=== PATIENT | female | born 1940 | race Caucasian/White ===

== ENCOUNTER 2019-05-23 09:06 | Inpatient (IN) | payer MEDICARE, OTHER, SELFPAY ==
[~2019-05-23] VITALS: Ht 147.3 cm; Wt 35.8 kg
--- NOTE | 2019-05-23 09:29 | NUR ---
pt simona Gabriel [phone]
[2019-05-23] MEDS ORDERED: SODIUM CHLORIDE FLUSH 10ML SYR IVF ONE (09:30)
--- NOTE | 2019-05-23 09:31 | NUR ---
LATE NOTE ENTRY DUE TO PT CARE: Pt presents to ED by EMS from home with c/o right sided headache. Per EMS, pt "may have fallen out of bed, but no active bleeding or acute trauma observed." Pt has history of HTN and pt is HTN at 228/91 upon arrival to ED with HR at 70. Pt is wearing 2L oxygen via NC and is 100 SPO2%. Pt wears 2L oxygen via NC at baseline. No reported blood thinners in pt's home meds per EMS. EMS reports pt is AOX4 and GCS 15. Pt presents to ED lethargic but arousable to voice and non-painful stimuli. Pt is verbally responding to staff with grunting noises. Pt's pupils reactive to light at 2mm. Pt reported to be "wheel chair bound" at home. Pt connected to campus monitor, NIBP cuff, and pulse ox. network operations technician at bedside and lab at bedside. ED staff forester at bedside attempting to place PIV.
--- NOTE | 2019-05-23 09:33 | NUR ---
EKG DONE BY THIS TECH
--- NOTE | 2019-05-23 09:44 | NUR ---
Pt to CT on dereck at this time. ED medical staff services manager unable to obtain PIV at this time.
[2019-05-23] MEDS ORDERED: LABETALOL 5MG/ML, 20ML ONE (09:49)
[2019-05-23] MEDS ORDERED: LABETALOL 5MG/ML, 20ML IVPush ONE (10:00)
[2019-05-23 10:27] LABS: BASOPHILS # (AUTO) 0.01 x10^3/uL (0-0.1); BASOPHILS % (AUTO) 0 % (0-1); EOSINOPHILS # (AUTO) 0.16 x10^3/uL (0-0.4); EOSINOPHILS % (AUTO) 2 % (1-7); LYMPHOCYTES # (AUTO) 0.77 x10^3/uL (1-3.4); LYMPHOCYTES % (AUTO) 9 % (22-44); MD NO; MEAN CORPUSCULAR HEMOGLOBIN 29.9 pg (27.0-34.8); MEAN CORPUSCULAR HGB CONC 32.7 g/dL (32.4-35.8); MEAN CORPUSCULAR VOLUME 91.5 fL (80-100); MEAN PLATELET VOLUME 7.4 fL (7.4-10.4); MONOCYTES # (AUTO) 0.34 x10^3/uL (0.2-0.8); MONOCYTES % (AUTO) 4 % (2-9); NEUTROPHILS # (AUTO) 6.97 x10^3/uL (1.8-6.8); NEUTROPHILS % (AUTO) 85 % (42-75); PLATELET COUNT 223 x10^3/uL (130-400); RED CELL DISTRIBUTION WIDTH 15.1 % (9.6-15.2)
[2019-05-23 10:35] LABS: ALBUMIN 4.3 g/dL (3.4-5.0); CALCIUM 10.9 mg/dL (8.5-10.1); CHLORIDE 98 mmol/L (98-107); CREATININE 0.57 mg/dL (0.55-1.02)
[2019-05-23 10:39] LABS: TROPONIN I < 0.015 ng/mL (0.000-0.045)
[2019-05-23 10:41] LABS: ANION GAP 3 mmol/L (5-15)
--- NOTE | 2019-05-23 10:51 | NUR ---
Pt resting on gurney with waffle mattress underneath. Pt has yellow fall gown, yellow treaded socks, and fall risk braclet on. Bedrails up x 2 for safety precautions and pt is in room near nurses station. Gurney in lowest position. PIV in place and medication provided per EMAR. Pt alert to voice and verbally communication with ED RN. PT is AO to self and year and follows commands.
[2019-05-23 10:53] LABS: MICROSCOPIC AUTO
--- NOTE | 2019-05-23 10:53 | NUR ---
Call light within reach.
[2019-05-23 11:14] LABS: CULTURE INDICATED? NO
--- NOTE | 2019-05-23 11:22 | NUR ---
Spoke with pt's , pt aware of current plan of care, awaiting all results. Pt remains on monitors, bp decreased after medication administration. Pt on waffle mattress. Pt able to answer some questions appropriately, able to follow most commands at this time. Call light in reach. Cont to monitor.
[2019-05-23] MEDS ORDERED: hydrALAzine 20 MG/ML, 1ML IVPush PRN (12:00)
[2019-05-23] MEDS ORDERED: ONDANSETRON 2MG/ML, 2ML IVPush PRN (12:00)
[2019-05-23] MEDS ORDERED: POTASSIUM CHLORIDE 40 MEQ in SODIUM CHLORIDE 0.9% 500 ML IV ONE (12:00)
[2019-05-23] MEDS ORDERED: LABETALOL 5MG/ML, 20ML IVPush PRN (12:00)
--- NOTE | 2019-05-23 12:15 | NUR ---
Lab at bedside for lab draw. Pt to be admit. Pt remains on monitors, able to follow commands and answers some questions appropriately. Cont to monitor.
[2019-05-23] MEDS ORDERED: FAMO10TA77 PO (12:24)
[2019-05-23] MEDS ORDERED: ATEN5POW PO (12:24)
--- NOTE | 2019-05-23 12:38 | NUR ---
Report called to Sheng BROWN, pt transfering to rm [id number]. Receiving RN aware pt is getting blood cultures drawn currently, and pt has scheduled abx to give. Floor RN states he will give iv abx when pt arrives to floor. Pt has all own belonging upon transfer.
[2019-05-23 12:51] LABS: INTERNATIONAL NORMALIZED RATIO 1.01 (0.93-1.1); PROTHROMBIN TIME 10.7 Seconds (9.6-11.5)
[2019-05-23 12:53] LABS: HCT (SEDRATE) 38.9 % (34.6-47.8)
[2019-05-23 13:04] LABS: FREE T4 (FREE THYROXINE) 1.29 ng/dL (0.76-1.46)
[2019-05-23 13:11] VITALS: BP 183/84
[2019-05-23] MEDS: HEPARIN 5,000 UNITS/ML, 1ML SQ SCH ×2 (15:24→19:53)
[2019-05-23] MEDS: ATENOLOL 25 MG TABLET PO SCH (15:24)
[2019-05-23] MEDS: LOSARTAN 50MG TABLET PO SCH ×2 (16:00→17:02)
[2019-05-23] MEDS: AMLODIPINE 10 MG TAB PO SCH ×2 (16:00→17:02)
[2019-05-23 17:03] VITALS: BP 149/74
[2019-05-23 19:20] VITALS: BP 159/75
[2019-05-23] MEDS: CEFTRIAXONE PMX 1GM/50ML 50 ML IV SCH (19:52)
[2019-05-23] MEDS: ACETAMINOPHEN 325 MG TABLET PO PRN (20:00)
[2019-05-24 00:18] VITALS: BP 152/73
[2019-05-24] MEDS: ATENOLOL 25 MG TABLET PO SCH (05:16)
[2019-05-24] MEDS: HEPARIN 5,000 UNITS/ML, 1ML SQ SCH ×3 (05:16→20:43)
[2019-05-24 05:59] LABS: ANION GAP 5 mmol/L (5-15); CALCIUM 10.3 mg/dL (8.5-10.1); CHLORIDE 103 mmol/L (98-107)
[2019-05-24 06:00] LABS: CREATININE 0.35 mg/dL (0.55-1.02)
[2019-05-24] MEDS ORDERED: ATENOLOL 25 MG TABLET PO SCH (06:00)
[2019-05-24 08:56] VITALS: BP 212/61
[2019-05-24] MEDS: SENNA/DOCUSATE TABLET PO SCH (09:02)
[2019-05-24] MEDS: AMLODIPINE 10 MG TAB PO SCH (09:02)
[2019-05-24] MEDS: LOSARTAN 50MG TABLET PO SCH (09:02)
[2019-05-24] MEDS: PAROXETINE 10 MG TABLET PO SCH (09:02)
[2019-05-24 09:35] VITALS: BP 183/73
[2019-05-24 09:35] LABS: BASOPHILS # (AUTO) 0.05 x10^3/uL (0-0.1); BASOPHILS % (AUTO) 1 % (0-1); EOSINOPHILS % (AUTO) 4 % (1-7); LYMPHOCYTES # (AUTO) 1.74 x10^3/uL (1-3.4); LYMPHOCYTES % (AUTO) 22 % (22-44); MD SCAN; MEAN CORPUSCULAR HEMOGLOBIN 29.7 pg (27.0-34.8); MEAN CORPUSCULAR HGB CONC 32.1 g/dL (32.4-35.8); MEAN CORPUSCULAR VOLUME 92.4 fL (80-100); MEAN PLATELET VOLUME 8.1 fL (7.4-10.4); MONOCYTES # (AUTO) 0.66 x10^3/uL (0.2-0.8); MONOCYTES % (AUTO) 8 % (2-9); NEUTROPHILS % (AUTO) 65 % (42-75); PLATELET COUNT 196 x10^3/uL (130-400); RED BLOOD COUNT 4.46 x10^6/uL (3.82-5.3); RED CELL DISTRIBUTION WIDTH 15.1 % (9.6-15.2)
[2019-05-24 10:22] VITALS: BP 151/70
[2019-05-24] MEDS: ACETAMINOPHEN 325 MG TABLET PO PRN (12:07)
[2019-05-24 13:00] VITALS: BP 148/65
--- NOTE | 2019-05-24 13:08 | NUR ---
Patient would benefit from ongoing skilled BRICKLAYER APPRENTICE serivces in SNF Addendum: 05/24/19 at 1308 by ALEX ORTEGA Amended: Links added.
[2019-05-24 19:01] VITALS: BP 144/68
[2019-05-24] MEDS: CEFTRIAXONE PMX 1GM/50ML 50 ML IV SCH (19:28)
[2019-05-25 00:26] VITALS: BP 157/77
[2019-05-25] MEDS: ATENOLOL 25 MG TABLET PO SCH (05:17)
[2019-05-25] MEDS: HEPARIN 5,000 UNITS/ML, 1ML SQ SCH ×2 (05:17→13:14)
[2019-05-25 07:06] VITALS: BP 162/71
[2019-05-25] MEDS: PAROXETINE 10 MG TABLET PO SCH (08:54)
[2019-05-25] MEDS: AMLODIPINE 10 MG TAB PO SCH (08:54)
[2019-05-25] MEDS: SENNA/DOCUSATE TABLET PO SCH (08:54)
[2019-05-25] MEDS ORDERED: LOSARTAN 100 MG TAB PO SCH (09:00)
[2019-05-25] MEDS ORDERED: ACET325T26 PO (11:52)
[2019-05-25] MEDS ORDERED: AMLO10TA8 PO (11:52)
[2019-05-25] MEDS ORDERED: PARO10TA3 PO (11:52)
[2019-05-25] MEDS ORDERED: HEPA50002 SQ (11:52)
[2019-05-25] MEDS ORDERED: LOSA100T2 PO (11:52)
[2019-05-25] MEDS ORDERED: HYDR-3341 PO (11:52)
[2019-05-25] MEDS ORDERED: ATEN25TA PO (11:52)
[2019-05-25] MEDS ORDERED: SENN-193 PO (11:52)
[2019-05-25 13:22] VITALS: BP 160/83
== END 2019-05-25 14:18 | DRG 305 ==
LOC: ED 11:06 → SUATTDRO 11:41 → EDIP 11:58 → 4WST 12:47
PROVIDERS: ADMIT Hospitalist; ATTEND Hospitalist
DX: I16.0 Hypertensive urgency (principal); E87.4 Mixed disorder of acid-base balance; I50.30 Unspecified diastolic (congestive) heart failure; Q21.1 Atrial septal defect; R64 Cachexia; Z68.1 Body mass index [BMI] 19.9 or less, adult; G93.40 Encephalopathy, unspecified; E83.52 Hypercalcemia; D35.1 Benign neoplasm of parathyroid gland; E86.0 Dehydration; E87.6 Hypokalemia; G31.84 Mild cognitive impairment of uncertain or unknown etiology; J44.9 Chronic obstructive pulmonary disease, unspecified; K21.9 Gastro-esophageal reflux disease without esophagitis; M41.9 Scoliosis, unspecified; M81.0 Age-related osteoporosis without current pathological fracture; R62.7 Adult failure to thrive; I11.0 Hypertensive heart disease with heart failure; Z80.9 Family history of malignant neoplasm, unspecified; Z82.49 Family history of ischemic heart disease and other diseases of the circulatory system; Z87.891 Personal history of nicotine dependence; Z85.3 Personal history of malignant neoplasm of breast; Z99.3 Dependence on wheelchair; R53.81 Other malaise
CPT/HCPCS: 36415; 36600; 70450; 70551; 71045; 72125; 76536; 80048; 81001; 82040; 82140; 82330; 82436; 82803; 83735; 83970; 84100; 84132; 84439; 84443; 84484; 85025; 85610; 85651; 87040; 93005; 93306; 95819; 96365; G0378; J0696; J1644; J3480; 92523-GN; J7040

== ENCOUNTER 2019-08-30 16:11 | Inpatient (IN) | payer MEDICARE, MEDICAID ==
[~2019-08-30] VITALS: Ht 152.4 cm; Wt 35.8 kg
[~2019-08-30 16:11] MED LIST: ACET325T26 PO; AMLO10TA8 PO; ATEN25TA PO; ATEN5POW PO; FAMO10TA77 PO; HEPA50002 SQ; HYDR-3341 PO; LOSA100T2 PO; PARO10TA3 PO; SENN-193 PO
--- NOTE | 2019-08-30 16:40 | NUR ---
PT BIB EMS FOR ALTERED MENTAL STATUS. PT RECENT DC FROM SNF FOR RIGHT HIP REPLACEMENT. PER PT HAD BEEN WEAK AND ALTERED. PT DENIES CP, SOB, OR COUGH. RESPONDS TO STIMULIT. PT HAD ON 2 BREIFS SOAKED. SKIN INTACT. CARDAIC MONITOR IN PLACE . VSS.
--- NOTE | 2019-08-30 16:46 | NUR ---
PT CALLED FOR INFO.
[2019-08-30] MEDS ORDERED: SODIUM CHLORIDE 0.9% 1,000ML IVBOLUS ONE (17:00)
[2019-08-30 17:10] LABS: MICROSCOPIC AUTO
--- NOTE | 2019-08-30 17:20 | NUR ---
PATIENTS SPOUSE, CORI CALLED FOR UPDATES, INFORMED HIM PATIENT IS RESTING COMFORTABLY IN BED AND WE ARE AWAITING LAB RESULTS. HE WOULD LIKE CALL WITH ANY UPDATES AT [phone]. pER SPOUSE PATIENT HAS DEMENTIA.
[2019-08-30 17:28] LABS: BASOPHILS # (AUTO) 0.02 x10^3/uL (0-0.1); BASOPHILS % (AUTO) 0 % (0-1); EOSINOPHILS # (AUTO) 0.16 x10^3/uL (0-0.4); EOSINOPHILS % (AUTO) 2 % (1-7); LYMPHOCYTES # (AUTO) 1.11 x10^3/uL (1-3.4); LYMPHOCYTES % (AUTO) 12 % (22-44); MD NO; MEAN CORPUSCULAR HEMOGLOBIN 27.7 pg (27.0-34.8); MEAN CORPUSCULAR HGB CONC 31.8 g/dL (32.4-35.8); MEAN PLATELET VOLUME 7.4 fL (7.4-10.4); MONOCYTES # (AUTO) 0.45 x10^3/uL (0.2-0.8); MONOCYTES % (AUTO) 5 % (2-9); NEUTROPHILS # (AUTO) 7.38 x10^3/uL (1.8-6.8); NEUTROPHILS % (AUTO) 81 % (42-75); PLATELET COUNT 241 x10^3/uL (130-400); RED BLOOD COUNT 4.51 x10^6/uL (3.82-5.3); RED CELL DISTRIBUTION WIDTH 15.6 % (9.6-15.2)
[2019-08-30 17:35] LABS: ALANINE AMINOTRANSFERASE 10 U/L (12-78); ALBUMIN 3.7 g/dL (3.4-5.0); ANION GAP 3 mmol/L (5-15); CHLORIDE 104 mmol/L (98-107); CREATININE 0.44 mg/dL (0.55-1.02)
[2019-08-30 17:39] LABS: ALKALINE PHOSPHATASE 156 U/L (45-117); BILIRUBIN,TOTAL 0.4 mg/dL (0.2-1.0); TOTAL PROTEIN 7.6 g/dL (6.4-8.2); TROPONIN I < 0.015 ng/mL (0.000-0.045)
[2019-08-30 17:40] LABS: SALICYLATE LEVEL < 1.7 mg/dL (2.8-20.0)
[2019-08-30 17:46] LABS: AMPHETAMINE SCREEN, URINE Negative (Negative); BARBITURATE SCREEN, URINE Negative (Negative); BENZODIAZEPINE SCREEN, URINE Negative (Negative); CANNABINOID SCREEN, URINE Positive (Negative); COCAINE SCREEN, URINE Negative (Negative); METHADONE SCREEN, URINE Negative (Negative); OPIATE SCREEN, URINE Negative (Negative)
[2019-08-30] MEDS ORDERED: POTASSIUM CHLORIDE 40 MEQ in SODIUM CHLORIDE 0.9% 500 ML IV ONE (18:00)
--- NOTE | 2019-08-30 18:00 | NUR ---
FLUIDS REQUESTED FROM PHARMACY.
[2019-08-30] MEDS ORDERED: BISACODYL 10 MG SUPP PR PRN (18:30)
[2019-08-30] MEDS ORDERED: ENOXAPARIN 40 MG/0.4 ML SQ SCH (18:30)
[2019-08-30] MEDS ORDERED: POLYETHYLENE GLYCOL 17 GM PACKET PO PRN (18:30)
[2019-08-30] MEDS ORDERED: morphine SULFATE 10 MG/ML, 1ML IVPush PRN (18:30)
[2019-08-30] MEDS ORDERED: ONDANSETRON 2MG/ML, 2ML IVPush PRN (18:30)
[2019-08-30] MEDS ORDERED: ACETAMINOPHEN 325 MG TABLET PO PRN (18:30)
--- NOTE | 2019-08-30 18:32 | NUR ---
IV POTASSIUM STARTED.
[2019-08-30] MEDS ORDERED: POTASSIUM CHLORIDE 40 MEQ in LACTATED RINGERS 1,000 ML IV SCH (19:00)
[2019-08-30] MEDS ORDERED: hydrALAzine 20 MG/ML, 1ML IV PRN (19:00)
--- NOTE | 2019-08-30 19:12 | NUR ---
report received from miah mcneil
[2019-08-30] MEDS ORDERED: ENOXAPARIN 40 MG/0.4 ML ONE (19:16)
[2019-08-30] MEDS ORDERED: hydrALAzine 20 MG/ML, 1ML ONE (19:16)
[2019-08-30] MEDS ORDERED: OMNIPAQUE 350 MG/ML, 100ML BOTTLE ONE (19:40)
--- NOTE | 2019-08-30 20:44 | NUR ---
report given to jason mcneil to assume care upon transfer to [facility]. Was informed room is not clean yet and will recieve call back once room is ready
[2019-08-30] MEDS ORDERED: FAMOTIDINE 20 MG TABLET PO ONE (21:00)
--- NOTE | 2019-08-30 21:38 | NUR ---
Received call from Diann BROWN that room is clean and ready for pt now
[2019-08-30 22:49] VITALS: BP 144/73
[2019-08-31] MEDS ORDERED: POTASSIUM CHLORIDE 20 MEQ TAB.ER.PRT PO ONE
[2019-08-31 01:30] VITALS: BP 127/70
[2019-08-31 04:59] LABS: BASOPHILS # (AUTO) 0.03 x10^3/uL (0-0.1); BASOPHILS % (AUTO) 0 % (0-1); EOSINOPHILS % (AUTO) 2 % (1-7); LYMPHOCYTES # (AUTO) 1.47 x10^3/uL (1-3.4); LYMPHOCYTES % (AUTO) 17 % (22-44); MD NO; MEAN CORPUSCULAR HEMOGLOBIN 27.9 pg (27.0-34.8); MEAN CORPUSCULAR HGB CONC 31.9 g/dL (32.4-35.8); MEAN PLATELET VOLUME 7.6 fL (7.4-10.4); MONOCYTES # (AUTO) 0.71 x10^3/uL (0.2-0.8); MONOCYTES % (AUTO) 8 % (2-9); NEUTROPHILS # (AUTO) 6.24 x10^3/uL (1.8-6.8); NEUTROPHILS % (AUTO) 72 % (42-75); PLATELET COUNT 220 x10^3/uL (130-400); RED BLOOD COUNT 3.79 x10^6/uL (3.82-5.3); RED CELL DISTRIBUTION WIDTH 15.3 % (9.6-15.2)
[2019-08-31 05:05] LABS: ANION GAP 6 mmol/L (5-15); CALCIUM 9.5 mg/dL (8.5-10.1); CHLORIDE 109 mmol/L (98-107); CREATININE 0.25 mg/dL (0.55-1.02)
[2019-08-31 05:27] VITALS: BP 127/70
[2019-08-31] MEDS: ATENOLOL 25 MG TABLET PO SCH (05:30)
[2019-08-31] MEDS: SENNA/DOCUSATE TABLET PO SCH ×3 (07:54→09:31)
[2019-08-31] MEDS ORDERED: GADOTERATE 5 MMOL/10 ML VIAL ONE (08:46)
[2019-08-31] MEDS: AMLODIPINE 10 MG TAB PO SCH (09:29)
[2019-08-31] MEDS: PAROXETINE 20 MG TABLET PO SCH (09:29)
[2019-08-31 09:32] VITALS: BP 151/69
[2019-08-31 14:35] VITALS: BP 147/72
[2019-08-31 18:51] VITALS: BP 152/73
[2019-09-01 01:18] VITALS: BP 153/83
[2019-09-01 05:29] VITALS: BP 149/75
[2019-09-01] MEDS: ATENOLOL 25 MG TABLET PO SCH (05:30)
[2019-09-01 05:54] LABS: ALBUMIN 3.1 g/dL (3.4-5.0); ANION GAP 5 mmol/L (5-15); CALCIUM 10.3 mg/dL (8.5-10.1); CHLORIDE 107 mmol/L (98-107)
[2019-09-01 05:59] LABS: ALANINE AMINOTRANSFERASE 9 U/L (12-78); ALKALINE PHOSPHATASE 121 U/L (45-117); BILIRUBIN,TOTAL 0.5 mg/dL (0.2-1.0); CREATININE 0.28 mg/dL (0.55-1.02); TOTAL PROTEIN 6.4 g/dL (6.4-8.2)
[2019-09-01 07:16] VITALS: BP 165/73
[2019-09-01] MEDS ORDERED: POTASSIUM CHLORIDE 20 MEQ TAB.ER.PRT PO SCH (08:00)
[2019-09-01] MEDS ORDERED: LOSARTAN 100 MG TAB PO SCH (09:00)
[2019-09-01] MEDS: AMLODIPINE 10 MG TAB PO SCH (09:11)
[2019-09-01] MEDS: PAROXETINE 20 MG TABLET PO SCH (09:11)
[2019-09-01] MEDS: SENNA/DOCUSATE TABLET PO SCH (09:13)
[2019-09-01 12:56] VITALS: BP 166/75
[2019-09-01] MEDS ORDERED: POTA20TA6 PO (13:35)
[2019-09-01] MEDS ORDERED: ENOXAPARIN 30 MG/0.3 ML SQ SCH (19:30)
== END 2019-09-01 15:40 | disposition home health service (06) | DRG 917 ==
LOC: ED 17:58 → EDIP 19:14 → 4EST 22:28
PROVIDERS: ADMIT Hospitalist; ATTEND Hospitalist
PROC: 0T9B70Z Drainage of Bladder with Drainage Device, Via Natural or Artificial Opening (ICD-10-PCS; principal; 2019-08-30)
DX: T40.7X1A Poisoning by cannabis (derivatives), accidental (unintentional), initial encounter (principal); G92 Toxic encephalopathy; J98.11 Atelectasis; J96.10 Chronic respiratory failure, unspecified whether with hypoxia or hypercapnia; Z68.1 Body mass index [BMI] 19.9 or less, adult; E87.6 Hypokalemia; F03.90 Unspecified dementia, unspecified severity, without behavioral disturbance, psychotic disturbance, mood disturbance, and anxiety; I10 Essential (primary) hypertension; I67.1 Cerebral aneurysm, nonruptured; I73.9 Peripheral vascular disease, unspecified; J44.9 Chronic obstructive pulmonary disease, unspecified; J84.10 Pulmonary fibrosis, unspecified; K21.9 Gastro-esophageal reflux disease without esophagitis; K44.9 Diaphragmatic hernia without obstruction or gangrene; M41.9 Scoliosis, unspecified; M81.0 Age-related osteoporosis without current pathological fracture; K86.89 Other specified diseases of pancreas; R62.7 Adult failure to thrive; R74.8 Abnormal levels of other serum enzymes; Z85.3 Personal history of malignant neoplasm of breast; Z87.891 Personal history of nicotine dependence; Z99.81 Dependence on supplemental oxygen; Z88.8 Allergy status to other drugs, medicaments and biological substances; Z79.01 Long term (current) use of anticoagulants
CPT/HCPCS: 36415; 70450; 70553; 71045; 74177; 80048; 80053; 80307; 81001; 82105; 82140; 82378; 83605; 83735; 84443; 84484; 85025; 86301; 87040; 93005; 99285; A9575; G0378; J1650; J3480; Q9967; J0360; J7030; J7040; J7120

== ENCOUNTER 2019-11-13 20:52 | Inpatient (IN) | payer MEDICARE, MEDICAID ==
[~2019-11-13] VITALS: Ht 152.4 cm; Wt 36.5 kg
[~2019-11-13 20:52] MED LIST changes: +POTA20TA6 PO
--- NOTE | 2019-11-13 21:06 | NUR ---
AWAKE, ALERT RESPONDS TO MOST QUESTIONS APPROPRIATLY, NO COMPLAINTS OF PAIN. IS PALE, VSS. USES HOME O2. LIVES WITH . ON MONITOR, CONT PULSE OX. 2ND IV BEING PLACED. CALL ROSARIO IN REACH, AIDET PROVIDED. WILL CONTINUE TO MONITOR.
--- NOTE | 2019-11-13 21:17 | NUR ---
ERP AT BEDSIDE, PT WITH PERIODS OF CONFUSION. KNOWS HER NAME, SOME OF HER HX AND WHERE SHE IS. 2ND IV PLACED, BLOODS DRAWN AND SENT. ON [employer]INTING. VSS.
--- NOTE | 2019-11-13 21:20 | NUR ---
PT STATES IT HAS BEEN VERY HARD FOR HER TO PHYSICALLY CARE FOR HER AT HOME ANYMORE.
[2019-11-13] MEDS ORDERED: SODIUM CHLORIDE FLUSH 10ML SYR IVF ONE (21:30)
[2019-11-13] MEDS ORDERED: ONDANSETRON 2MG/ML, 2ML IVPush ONE (22:00)
[2019-11-13] MEDS ORDERED: ONDANSETRON 2MG/ML, 2ML ONE (22:15)
[2019-11-13 22:21] LABS: ALANINE AMINOTRANSFERASE 32 U/L (12-78); ALBUMIN 3.2 g/dL (3.4-5.0); ANION GAP 8 mmol/L (5-15); CALCIUM 9.5 mg/dL (8.5-10.1); CHLORIDE 105 mmol/L (98-107)
[2019-11-13 22:23] LABS: ALKALINE PHOSPHATASE 545 U/L (45-117); BILIRUBIN,TOTAL 0.7 mg/dL (0.2-1.0); TOTAL PROTEIN 6.7 g/dL (6.4-8.2)
[2019-11-13 22:24] LABS: BASOPHILS % (AUTO) 0 % (0-1); EOSINOPHILS % (AUTO) 0 % (1-7); LYMPHOCYTES % (AUTO) 10 % (22-44); MEAN CORPUSCULAR HEMOGLOBIN 30.3 pg (27.0-34.8); MEAN CORPUSCULAR HGB CONC 32.5 g/dL (32.4-35.8); MEAN PLATELET VOLUME 7.9 fL (7.4-10.4); MONOCYTES % (AUTO) 5 % (2-9); NEUTROPHILS % (AUTO) 84 % (42-75); PLATELET COUNT 254 x10^3/uL (130-400); RED BLOOD COUNT 1.59 x10^6/uL (3.82-5.3); RED CELL DISTRIBUTION WIDTH 18.4 % (9.6-15.2)
--- NOTE | 2019-11-13 22:25 | NUR ---
CALLED, INFORMED HIM SHE WILL BE STAYING IN HOSPITAL.
[2019-11-13] MEDS ORDERED: PANTOPRAZOLE 80 MG in SODIUM CHLORIDE 0.9% 50 ML IV ONE (22:30)
--- NOTE | 2019-11-13 22:51 | NUR ---
PER MEDIC REPORT LIST OF MEDS UPDATED, PT THINKS SHE TOOK THEM TODAY BUT NOT SURE. PRBC, PROTONIX REQUESTED. VSS. WILL CONTINUE TO MONITOR. PT SLEEPING, WAKES UP WITH VERBAL/TOUCH, NO PAIN, NO N/V. AIDET PROVIDED.
[2019-11-13 22:57] LABS: MD MORPH REVIEW ONLY
[2019-11-13 22:58] LABS: ANISOCYTOSIS 1+
[2019-11-13 22:59] LABS: HYPOCHROMIA 1+; POLYCHROMASIA 1+
--- NOTE | 2019-11-13 22:59 | NUR ---
maritza rn: called with primary rn denisha to get consent for blood transfusion.
[2019-11-13 23:00] LABS: <PLATELET ESTIMATE> ADEQUATE; <PLT MORPHOLOGY> NORMAL PLT MORPH
[2019-11-13 23:07] VITALS: BP 119/45
--- NOTE | 2019-11-13 23:16 | NUR ---
PRBC STARTED PER POLICY. CONSENT OBTAINED FROM CORI PT WITH 2 RN CONSENT. VSS. WAITING FOR ADMIT/BED
[2019-11-13 23:22] VITALS: BP 145/54
--- NOTE | 2019-11-13 23:27 | NUR ---
TRANSFUSION VSS AT 15MIN. WILL CONTINUE TO MONITOR.
[2019-11-13] MEDS ORDERED: NS + 40MEQ KCL 1,000 ML IV SCH (23:30)
[2019-11-13] MEDS ORDERED: BISACODYL 10 MG SUPP PR PRN (23:30)
--- NOTE | 2019-11-13 23:32 | NUR ---
Juni cohen in ED - 11/13/19 at 2332 by [email or web address] REPORT TO MARITZA INIGUEZ PT PREPARED FOR TRANSPORT.
--- NOTE | 2019-11-13 23:33 | NUR ---
REPORT TO MARITZA HERNANDEZ RN. PT PREPARED FOR TRANSPORT. NO S/S BLOOD TX RXN. VSS.
[2019-11-13 23:55] VITALS: BP 120/76
[2019-11-14] VITALS (13 sets, daily range): BP systolic 101–148; BP diastolic 63–74
[2019-11-14] MEDS: PANTOPRAZOLE 80 MG in SODIUM CHLORIDE 0.9% 100 ML IV SCH ×2 (00:46→10:33)
[2019-11-14 05:30] LABS: ANION GAP 7 mmol/L (5-15); CALCIUM 9.2 mg/dL (8.5-10.1); CHLORIDE 112 mmol/L (98-107)
[2019-11-14 05:31] LABS: CREATININE 0.29 mg/dL (0.55-1.02)
[2019-11-14 05:32] LABS: BASOPHILS % (AUTO) 0 % (0-1); EOSINOPHILS % (AUTO) 0 % (1-7); LYMPHOCYTES % (AUTO) 10 % (22-44); MEAN CORPUSCULAR HEMOGLOBIN 30.6 pg (27.0-34.8); MEAN CORPUSCULAR HGB CONC 33.6 g/dL (32.4-35.8); MEAN PLATELET VOLUME 7.8 fL (7.4-10.4); MONOCYTES % (AUTO) 9 % (2-9); NEUTROPHILS % (AUTO) 80 % (42-75); PLATELET COUNT 161 x10^3/uL (130-400); RED BLOOD COUNT 2.94 x10^6/uL (3.82-5.3)
[2019-11-14] MEDS ORDERED: ATENOLOL 25 MG TABLET PO SCH (06:00)
[2019-11-14 06:02] LABS: MD NO
[2019-11-14] MEDS ORDERED: POTASSIUM CHLORIDE 20 MEQ TAB.ER.PRT PO SCH (09:00)
[2019-11-14] MEDS ORDERED: PAROXETINE 10 MG TABLET PO SCH (09:00)
[2019-11-14] MEDS ORDERED: AMLODIPINE 10 MG TAB PO SCH (09:00)
[2019-11-14] MEDS ORDERED: SENNA/DOCUSATE TABLET PO SCH (09:00)
[2019-11-14] MEDS ORDERED: LOSARTAN 100 MG TAB PO SCH (09:00)
[2019-11-14] MEDS ORDERED: ATROPINE OPHTH SOLN 1%, 5ML PO PRN (16:30)
[2019-11-14] MEDS: SODIUM CHLORIDE FLUSH 10ML SYR IVF SCH (20:51)
[2019-11-15] MEDS: MORPHINE SULFATE 4 MG/ML, 1ML IVPush PRN ×2 (04:24→09:38)
[2019-11-15] MEDS: SODIUM CHLORIDE FLUSH 10ML SYR IVF SCH ×2 (09:39→21:15)
[2019-11-15] MEDS: LORazepam 2 MG/ML, 1ML IVPush PRN (21:14)
[2019-11-16] MEDS: SODIUM CHLORIDE FLUSH 10ML SYR IVF SCH ×2 (08:28→21:37)
[2019-11-16] MEDS: MORPHINE SULFATE 4 MG/ML, 1ML IVPush PRN (18:11)
[2019-11-16] MEDS: LORazepam 2 MG/ML, 1ML IVPush PRN (21:36)
[2019-11-17] MEDS: SODIUM CHLORIDE FLUSH 10ML SYR IVF SCH ×2 (09:00→20:25)
[2019-11-17] MEDS: SCOPOLAMINE 1MG PATCH TD PRN (15:08)
[2019-11-17] MEDS: GUAIFENESIN/DM 200-20MG, 10ML UDC PO PRN (17:19)
[2019-11-17] MEDS: MORPHINE SULFATE 4 MG/ML, 1ML IVPush PRN (20:33)
[2019-11-18] MEDS: SODIUM CHLORIDE FLUSH 10ML SYR IVF SCH (09:50)
[2019-11-18] MEDS: GUAIFENESIN/DM 200-20MG, 10ML UDC PO PRN (09:50)
[2019-11-18] MEDS: TOBRAMYCIN/DEXAMETH OPHTH OINT 3GM RIGHTEYE SCH (16:00)
[2019-11-18] MEDS: ACETAMINOPHEN 325 MG TABLET PO PRN (16:57)
[2019-11-19] MEDS: SODIUM CHLORIDE FLUSH 10ML SYR IVF SCH ×3 (00:25→21:24)
[2019-11-19] MEDS: TOBRAMYCIN/DEXAMETH OPHTH OINT 3GM RIGHTEYE SCH ×4 (00:26→21:24)
[2019-11-19] MEDS: GUAIFENESIN/DM 200-20MG, 10ML UDC PO PRN ×2 (14:06→19:23)
[2019-11-19] MEDS: SENNA/DOCUSATE TABLET PO PRN (14:06)
[2019-11-20] MEDS: LORazepam 2 MG/ML, 1ML IVPush PRN (00:18)
[2019-11-20] MEDS: MORPHINE SULFATE 4 MG/ML, 1ML IVPush PRN ×2 (03:32→21:49)
[2019-11-20] MEDS: TOBRAMYCIN/DEXAMETH OPHTH OINT 3GM RIGHTEYE SCH ×3 (08:59→21:49)
[2019-11-20] MEDS: SODIUM CHLORIDE FLUSH 10ML SYR IVF SCH ×2 (09:00→21:49)
[2019-11-21] MEDS: TOBRAMYCIN/DEXAMETH OPHTH OINT 3GM RIGHTEYE SCH ×3 (07:53→22:48)
[2019-11-21] MEDS: MORPHINE SULFATE 4 MG/ML, 1ML IVPush PRN (07:54)
[2019-11-21] MEDS: SODIUM CHLORIDE FLUSH 10ML SYR IVF SCH ×2 (07:54→22:48)
[2019-11-21] MEDS: SENNA/DOCUSATE TABLET PO PRN (11:39)
[2019-11-21] MEDS: SENNA/DOCUSATE TABLET PO SCH ×2 (13:42→22:48)
[2019-11-21] MEDS: POLYETHYLENE GLYCOL 17 GM PACKET NG SCH (13:43)
[2019-11-22] MEDS: MORPHINE SULFATE 4 MG/ML, 1ML IVPush PRN ×2 (06:46→14:53)
[2019-11-22] MEDS: SODIUM CHLORIDE FLUSH 10ML SYR IVF SCH ×2 (07:36→20:35)
[2019-11-22] MEDS: SENNA/DOCUSATE TABLET PO SCH ×2 (07:37→20:34)
[2019-11-22] MEDS: POLYETHYLENE GLYCOL 17 GM PACKET NG SCH (07:37)
[2019-11-22] MEDS: TOBRAMYCIN/DEXAMETH OPHTH OINT 3GM RIGHTEYE SCH ×3 (07:37→20:34)
[2019-11-22] MEDS ORDERED: PINK LADY ENEMA 490 ML BOTTLE PR PRN (11:00)
[2019-11-22] MEDS: ONDANSETRON ODT 4 MG PO PRN (14:53)
[2019-11-23] MEDS: ACETAMINOPHEN 325 MG TABLET PO PRN (00:15)
[2019-11-23] MEDS: TOBRAMYCIN/DEXAMETH OPHTH OINT 3GM RIGHTEYE SCH ×3 (10:30→21:21)
[2019-11-23] MEDS: SENNA/DOCUSATE TABLET PO SCH ×2 (10:30→21:21)
[2019-11-23] MEDS: POLYETHYLENE GLYCOL 17 GM PACKET NG SCH (10:30)
[2019-11-23] MEDS: METHYLNALTREXONE 12 MG/0.6 ML SYR SQ SCH (10:30)
[2019-11-23] MEDS: SODIUM CHLORIDE FLUSH 10ML SYR IVF SCH ×2 (10:31→21:21)
[2019-11-23] MEDS: MORPHINE SULFATE 4 MG/ML, 1ML IVPush PRN ×2 (13:06→18:31)
[2019-11-23] MEDS: ONDANSETRON ODT 4 MG PO PRN (13:06)
[2019-11-23] MEDS: LORazepam 2 MG/ML, 1ML IVPush PRN (22:05)
[2019-11-24] MEDS: SODIUM CHLORIDE FLUSH 10ML SYR IVF SCH (09:00)
[2019-11-24] MEDS: TOBRAMYCIN/DEXAMETH OPHTH OINT 3GM RIGHTEYE SCH ×3 (09:00→20:34)
[2019-11-24] MEDS: POLYETHYLENE GLYCOL 17 GM PACKET NG SCH (09:00)
[2019-11-24] MEDS: SENNA/DOCUSATE TABLET PO SCH ×2 (09:00→20:35)
[2019-11-24] MEDS: MORPHINE SULFATE 4 MG/ML, 1ML IVPush PRN ×2 (18:16→20:34)
[2019-11-25] MEDS: LORazepam 2 MG/ML, 1ML IVPush PRN (00:02)
[2019-11-25] MEDS: METHYLNALTREXONE 12 MG/0.6 ML SYR SQ SCH (08:47)
[2019-11-25] MEDS: SENNA/DOCUSATE TABLET PO SCH ×2 (08:47→21:55)
[2019-11-25] MEDS: MORPHINE SULFATE 4 MG/ML, 1ML IVPush PRN ×3 (08:47→22:24)
[2019-11-25] MEDS: POLYETHYLENE GLYCOL 17 GM PACKET NG SCH (08:47)
[2019-11-25] MEDS: TOBRAMYCIN/DEXAMETH OPHTH OINT 3GM RIGHTEYE SCH ×3 (08:47→21:55)
[2019-11-26] MEDS: LORazepam 2 MG/ML, 1ML IVPush PRN ×2 (05:34→21:39)
[2019-11-26] MEDS: SENNA/DOCUSATE TABLET PO SCH ×2 (09:57→20:27)
[2019-11-26] MEDS: TOBRAMYCIN/DEXAMETH OPHTH OINT 3GM RIGHTEYE SCH ×3 (09:57→21:39)
[2019-11-26] MEDS: POLYETHYLENE GLYCOL 17 GM PACKET NG SCH (09:57)
[2019-11-26] MEDS: MORPHINE SULFATE 4 MG/ML, 1ML IVPush PRN (19:33)
[2019-11-26] MEDS: GUAIFENESIN/DM 200-20MG, 10ML UDC PO PRN (23:00)
[2019-11-27] MEDS: GUAIFENESIN/DM 200-20MG, 10ML UDC PO PRN (06:57)
[2019-11-27] MEDS: TOBRAMYCIN/DEXAMETH OPHTH OINT 3GM RIGHTEYE SCH ×3 (12:12→20:22)
[2019-11-27] MEDS: SENNA/DOCUSATE TABLET PO SCH ×2 (12:12→20:22)
[2019-11-27] MEDS: METHYLNALTREXONE 12 MG/0.6 ML SYR SQ SCH (12:12)
[2019-11-27] MEDS: POLYETHYLENE GLYCOL 17 GM PACKET NG SCH (12:12)
[2019-11-27] MEDS: MORPHINE SULFATE 4 MG/ML, 1ML IVPush PRN ×3 (13:27→20:22)
[2019-11-28] MEDS: LORazepam 2 MG/ML, 1ML IVPush PRN (02:40)
[2019-11-28] MEDS: SENNA/DOCUSATE TABLET PO SCH ×2 (08:51→21:00)
[2019-11-28] MEDS: POLYETHYLENE GLYCOL 17 GM PACKET NG SCH (08:51)
[2019-11-28] MEDS: TOBRAMYCIN/DEXAMETH OPHTH OINT 3GM RIGHTEYE SCH ×3 (08:52→21:23)
[2019-11-28] MEDS: MORPHINE SULFATE 4 MG/ML, 1ML IVPush PRN ×2 (08:52→14:01)
[2019-11-28] MEDS: ONDANSETRON ODT 4 MG PO PRN (14:16)
[2019-11-29] MEDS: LORazepam 2 MG/ML, 1ML IVPush PRN (02:53)
[2019-11-29] MEDS: MORPHINE SULFATE 4 MG/ML, 1ML IVPush PRN ×3 (06:34→23:07)
[2019-11-29] MEDS: SENNA/DOCUSATE TABLET PO SCH ×2 (08:10→21:52)
[2019-11-29] MEDS: METHYLNALTREXONE 12 MG/0.6 ML SYR SQ SCH (08:10)
[2019-11-29] MEDS: POLYETHYLENE GLYCOL 17 GM PACKET NG SCH (08:10)
[2019-11-29] MEDS: TOBRAMYCIN/DEXAMETH OPHTH OINT 3GM RIGHTEYE SCH ×3 (09:55→21:52)
[2019-11-29] MEDS: ONDANSETRON 2MG/ML, 2ML IVPush PRN (15:13)
[2019-11-29] MEDS: GUAIFENESIN/DM 200-20MG, 10ML UDC PO PRN (22:18)
[2019-11-30] MEDS: MORPHINE SULFATE 4 MG/ML, 1ML IVPush PRN ×2 (04:36→09:00)
[2019-11-30] MEDS: SCOPOLAMINE 1MG PATCH TD PRN (09:00)
[2019-11-30] MEDS: POLYETHYLENE GLYCOL 17 GM PACKET NG SCH (09:00)
[2019-11-30] MEDS: SENNA/DOCUSATE TABLET PO SCH ×2 (09:00→21:48)
[2019-11-30] MEDS: TOBRAMYCIN/DEXAMETH OPHTH OINT 3GM RIGHTEYE SCH ×3 (09:08→21:48)
[2019-11-30] MEDS: LORazepam 2 MG/ML, 1ML IVPush PRN (09:08)
[2019-12-01] MEDS: MORPHINE SULFATE 4 MG/ML, 1ML IVPush PRN ×3 (02:45→18:03)
[2019-12-01] MEDS: ONDANSETRON 2MG/ML, 2ML IVPush PRN (02:45)
[2019-12-01] MEDS: POLYETHYLENE GLYCOL 17 GM PACKET NG SCH (08:24)
[2019-12-01] MEDS: METHYLNALTREXONE 12 MG/0.6 ML SYR SQ SCH (08:24)
[2019-12-01] MEDS: TOBRAMYCIN/DEXAMETH OPHTH OINT 3GM RIGHTEYE SCH ×3 (08:25→23:00)
[2019-12-01] MEDS: SENNA/DOCUSATE TABLET PO SCH ×2 (08:25→23:00)
[2019-12-02] MEDS: MORPHINE SULFATE 4 MG/ML, 1ML IVPush PRN ×2 (04:56→19:31)
[2019-12-02] MEDS: POLYETHYLENE GLYCOL 17 GM PACKET NG SCH (09:00)
[2019-12-02] MEDS: TOBRAMYCIN/DEXAMETH OPHTH OINT 3GM RIGHTEYE SCH ×3 (09:00→19:31)
[2019-12-02] MEDS: SENNA/DOCUSATE TABLET PO SCH ×2 (09:00→19:31)
[2019-12-03] MEDS: MORPHINE SULFATE 4 MG/ML, 1ML IVPush PRN ×2 (02:30→11:34)
[2019-12-03] MEDS: POLYETHYLENE GLYCOL 17 GM PACKET NG SCH (11:32)
[2019-12-03] MEDS: SENNA/DOCUSATE TABLET PO SCH ×2 (11:35→21:00)
[2019-12-03] MEDS: METHYLNALTREXONE 12 MG/0.6 ML SYR SQ SCH (11:37)
[2019-12-03] MEDS: TOBRAMYCIN/DEXAMETH OPHTH OINT 3GM RIGHTEYE SCH ×3 (11:42→21:55)
[2019-12-04] MEDS: MORPHINE SULFATE 4 MG/ML, 1ML IVPush PRN ×3 (01:28→13:01)
[2019-12-04] MEDS: LORazepam 2 MG/ML, 1ML IVPush PRN (06:08)
[2019-12-04] MEDS: SENNA/DOCUSATE TABLET PO SCH (09:00)
[2019-12-04] MEDS: TOBRAMYCIN/DEXAMETH OPHTH OINT 3GM RIGHTEYE SCH (09:00)
[2019-12-04] MEDS: POLYETHYLENE GLYCOL 17 GM PACKET NG SCH (09:00)
[2019-12-04] MEDS ORDERED: morphine SULFATE 10 MG/ML, 1ML ONE (12:59)
== END 2019-12-04 13:45 | disposition hospice, home (50) | DRG 377 ==
LOC: ED 21:11 → EDIP 23:39 → 3N 23:47 → 4NW 11-17 07:39
PROVIDERS: ADMIT Family Medicine; ATTEND Internal Medicine
PROC: 30233N1 Transfusion of Nonautologous Red Blood Cells into Peripheral Vein, Percutaneous Approach (ICD-10-PCS; principal; 2019-11-13)
DX: K92.2 Gastrointestinal hemorrhage, unspecified (principal); G93.41 Metabolic encephalopathy; E43 Unspecified severe protein-calorie malnutrition; D62 Acute posthemorrhagic anemia; J96.10 Chronic respiratory failure, unspecified whether with hypoxia or hypercapnia; Z68.1 Body mass index [BMI] 19.9 or less, adult; F03.90 Unspecified dementia, unspecified severity, without behavioral disturbance, psychotic disturbance, mood disturbance, and anxiety; E87.6 Hypokalemia; Z66 Do not resuscitate; M81.0 Age-related osteoporosis without current pathological fracture; J44.9 Chronic obstructive pulmonary disease, unspecified; K21.9 Gastro-esophageal reflux disease without esophagitis; F12.90 Cannabis use, unspecified, uncomplicated; H10.9 Unspecified conjunctivitis; K86.9 Disease of pancreas, unspecified; I10 Essential (primary) hypertension; K59.03 Drug induced constipation; R62.7 Adult failure to thrive; T40.605A Adverse effect of unspecified narcotics, initial encounter; Z20.828 Contact with and (suspected) exposure to other viral communicable diseases; Z51.5 Encounter for palliative care; Z99.81 Dependence on supplemental oxygen; Z88.8 Allergy status to other drugs, medicaments and biological substances; Z85.3 Personal history of malignant neoplasm of breast; Z59.9 Problem related to housing and economic circumstances, unspecified
CPT/HCPCS: 36415; 80048; 80053; 83690; 85014; 85018; 85025; 86480; 86850; 86900; 86923; 87635; 93005; 96374; 99291; G0378; J2405; Q0162; C9113; J2060; J2270; J3480; P9016